=== PATIENT | male | born 1950 | race Caucasian/White ===

== ENCOUNTER 2016-06-27 15:18 | Emergency (ER) | payer MEDICARE, OTHER ==
[~2016-06-27 15:18] MED LIST: ASPIR 8181 M1 PO; ATORVASTATIN CA10 M1 PO; Atorvastatin PO; COLACE100 M1 PO; ECOTRIN81 M2 PO; LAMISIL250 M1 PO; LATANOPROST OPTH EACH EYE; LIPITOR20 M1 PO; NORCO 5-325 TA1 EACH PO; XALATAN2.5 M1 EACH EYE
[2016-06-27 16:56] LABS: BASO % 0.1 % (0-2); EOS % 0.1 % (0-7); HGB-HEMOGLOBIN 15.6 gm/dl (13.5-17.0); IMMATURE GRANULOCYTES ABSOLUTE 0.02 tho/cmm (0-0.03); IMMATURE GRANULOCYTES PERCENT 0.2 % (0-0.3); LYMPH % 7.9 % (20-45); MCH (MEAN CORPUSCULAR HGB) 30.6 pg (28.0-32.0); MCHC MEAN CORPUSCULAR HGB CONC 35.5 % (32.0-36.0); MCV (MEAN CELL VOLUME) 86.3 fl (82.0-96.0); MEAN PLATELET VOLUME 10.1 cmc (9.4-12.4); MONO % 7.2 % (0-12); MONOCYTE ABSOLUTE COUNT 0.9 tho/cmm (0.0-1.2); NEUTROPHIL ABSOLUTE COUNT 10.5 tho/cmm (1.6-8.0); NEUTROPHIL-AUTOMATED 10.5 tho/cmm (1.6-8.0); NEUTROPHILS % 84.5 % (40-80); PLATELET COUNT 224 tho/cmm (150-450); RED CELL DISTRIBUTION WIDTH 12.4 % (12.4-16.4); WHITE BLOOD COUNT 12.5 tho/cmm (4.0-10.0)
[2016-06-27 17:12] LABS: ALB/GLOB RATIO 1.3 (0.8-2.0); ALBUMIN 4.3 g/dl (3.5-5.0); ALKALINE PHOSPHATASE 111 U/L (33-138); ALT/SGPT 36 U/L (12-78); BILIRUBIN,TOTAL 0.4 mg/dl (0.0-1.5); BLOOD UREA NITROGEN 26 mg/dl (6-24); CALCIUM 8.9 mg/dl (8.5-10.5); CARBON DIOXIDE-VENOUS 26 mmol/L (22-32); CHLORIDE 104 mmol/l (96-110); CREATININE 1.63 mg/dl (0.60-1.30); GLUCOSE 154 mg/dL (70-110); SODIUM 139 mmol/L (135-145); eGFR VALUE FOR BLACK 50 mL/Min
[2016-06-27 17:16] LABS: ANION GAP 13 mmol/L (0-20); AST/SGOT 30 U/L (10-40); POTASSIUM 4.4 mmol/L (3.7-5.1)
== END 2016-06-27 17:01 | disposition other institution (70) ==
LOC: EDMED 15:18
PROVIDERS: Nurse Practitioner Family
DX: S27.0XXA Traumatic pneumothorax, initial encounter (principal); S22.31XA Fracture of one rib, right side, initial encounter for closed fracture; S42.031A Displaced fracture of lateral end of right clavicle, initial encounter for closed fracture; S42.111A Displaced fracture of body of scapula, right shoulder, initial encounter for closed fracture; Z88.0 Allergy status to penicillin; V18.4XXA Pedal cycle driver injured in noncollision transport accident in traffic accident, initial encounter; Y93.55 Activity, bike riding; Y92.410 Unspecified street and highway as the place of occurrence of the external cause; Y99.8 Other external cause status